=== PATIENT | male | born 1965 | race Caucasian/White ===

== ENCOUNTER 2016-10-28 05:25 | Inpatient (IN) | payer OTHER ==
[~2016-10-28] VITALS: Ht 172.7 cm; Wt 94.0 kg
[2016-10-28] MEDS ORDERED: BUPR300T4 PO (06:18)
[2016-10-28] MEDS ORDERED: PANT40TA5 PO (06:18)
[2016-10-28] MEDS ORDERED: LACTATED RINGERS 1,000 ML IV SCH (06:18)
[2016-10-28] MEDS ORDERED: GABA300C10 PO (06:18)
[2016-10-28] MEDS ORDERED: TRAM50TA2 PO (06:18)
[2016-10-28] MEDS ORDERED: ATOR40TA78 PO (06:18)
[2016-10-28 06:19] VITALS: BP 151/94
[2016-10-28] MEDS ORDERED: LIDOCAINE 1%, 2ML SQ PRN (06:30)
[2016-10-28] MEDS ORDERED: LIDOCAINE 0.5%-EPI 1:200K, 50ML ONE (07:02)
[2016-10-28] MEDS ORDERED: THROMBIN 5,000 UNIT VIAL TP ONE (07:03)
[2016-10-28] MEDS ORDERED: BUPIVACAINE/PF 0.25% ONE (07:03)
[2016-10-28] MEDS ORDERED: VANCOMYCIN 1,000 MG ONE (07:03)
[2016-10-28] MEDS ORDERED: FENTANYL PF 250 MCG/5ML ONE ×2 (07:05→10:07)
[2016-10-28] MEDS ORDERED: MIDAZOLAM 1 MG/ML, 2ML ONE (07:06)
[2016-10-28] MEDS ORDERED: KETAMINE 10 MG/ML, 20ML ONE (07:15)
[2016-10-28] MEDS ORDERED: SUCCINYLCHOLINE 20 MG/ML, 10ML ONE (07:35)
[2016-10-28] MEDS ORDERED: NEOSTIGMINE 1 MG/ML, 10ML ONE (07:35)
[2016-10-28] MEDS ORDERED: GLYCOPYRROLATE 0.2MG/1ML ONE (07:35)
[2016-10-28] MEDS ORDERED: PROPOFOL 10 MG/ML, 20ML ONE (07:35)
[2016-10-28] MEDS ORDERED: CEFAZOLIN 1,000 MG ONE (07:35)
[2016-10-28] MEDS ORDERED: DEXAMETHASONE 4 MG/ML, 1ML ONE (07:35)
[2016-10-28] MEDS ORDERED: ROCURONIUM 10 MG/ML ONE (07:35)
[2016-10-28] MEDS ORDERED: ONDANSETRON 2MG/ML, 2ML ONE (07:35)
[2016-10-28] MEDS ORDERED: HYDROmorphone 1 MG/ML, 1ML ONE (07:51)
[2016-10-28] MEDS ORDERED: HYDROmorphone 1 MG/ML, 1ML IV PRN (08:30)
[2016-10-28] MEDS ORDERED: MIDAZOLAM 1 MG/ML, 2ML IV PRN (08:30)
[2016-10-28] MEDS ORDERED: PROMETHAZINE 25 MG/ML, 1ML IV PRN (08:30)
[2016-10-28] MEDS ORDERED: OXYcodone 5 MG/5 ML ORAL.SOL UDC PO PRN (08:30)
[2016-10-28] MEDS ORDERED: MEPERIDINE/PF 25MG/0.5ML IVPush PRN (08:30)
[2016-10-28] MEDS ORDERED: ACETAMINOPHEN 325 MG TABLET PO PRN (08:30)
[2016-10-28] MEDS ORDERED: METOPROLOL 1 MG/ML, 5ML IV PRN (08:30)
[2016-10-28] MEDS ORDERED: ONDANSETRON 2MG/ML, 2ML IVPush PRN (08:30)
[2016-10-28] MEDS ORDERED: hydrALAzine 20 MG/ML, 1ML IV PRN (08:30)
[2016-10-28] MEDS ORDERED: FENTANYL PF 100 MCG/2ML IV PRN (08:30)
[2016-10-28] MEDS ORDERED: NICOTINE 7 MG/24 HR PATCH.TD24 TD PRN (14:30)
[2016-10-28] MEDS ORDERED: PROMETHAZINE 25 MG/ML, 1ML IM PRN (15:00)
[2016-10-28] MEDS ORDERED: DIAZEPAM 5 MG/ML, 2ML IV PRN (15:00)
[2016-10-28] MEDS ORDERED: ONDANSETRON 2MG/ML, 2ML IV PRN (15:00)
[2016-10-28] MEDS ORDERED: MAGNESIUM HYDROXIDE 8%, 30ML UDC PO PRN (15:00)
[2016-10-28] MEDS ORDERED: morphine SULFATE 10 MG/ML, 1ML IV PRN (15:00)
[2016-10-28] MEDS ORDERED: BISACODYL 10 MG SUPP PR PRN (15:00)
[2016-10-28] MEDS: CEFAZOLIN PMX 1GM/50ML 50 ML IVPB SCH ×2 (15:26→22:48)
[2016-10-28] MEDS: D5%-0.9% NACL+KCL 20MEQ 1,000 ML IV SCH (15:26)
[2016-10-28 19:10] VITALS: BP 110/72
[2016-10-28] MEDS: GABAPENTIN 300 MG CAPSULE PO SCH (22:18)
[2016-10-28] MEDS: ATORVASTATIN 40 MG TABLET PO SCH (22:18)
[2016-10-29 00:21] VITALS: BP 115/69
[2016-10-29 03:41] VITALS: BP 115/70
[2016-10-29] MEDS: D5%-0.9% NACL+KCL 20MEQ 1,000 ML IV SCH ×2 (04:26→11:23)
[2016-10-29 05:31] LABS: BLOOD UREA NITROGEN 12 mg/dL (7-18)
[2016-10-29] MEDS: CEFAZOLIN PMX 1GM/50ML 50 ML IVPB SCH ×3 (06:37→23:15)
[2016-10-29 07:20] VITALS: BP 123/72
[2016-10-29] MEDS: PANTOPROZOLE 40MG TABLET PO SCH (07:47)
[2016-10-29] MEDS: SENNA/DOCUSATE TABLET PO SCH (07:47)
[2016-10-29] MEDS: BUPROPION 300 MG HOMEMEDPO SCH (07:47)
[2016-10-29] MEDS: DIAZEPAM 5 MG TABLET PO PRN ×2 (07:56→16:11)
[2016-10-29] MEDS: TAMSULOSIN 0.4 MG CAP.ER.24H PO SCH (11:56)
[2016-10-29] MEDS: SODIUM CHLORIDE 0.9% 1,000 ML IRRIG SCH ×2 (11:56→16:08)
[2016-10-29] MEDS: NS + 20MEQ KCL 1,000 ML IV SCH (11:57)
[2016-10-29] MEDS: HYDROcodone/APAP 5/325 TABLET PO PRN ×2 (11:57→16:11)
[2016-10-29] MEDS: MAGNESIUM HYDROXIDE 8%, 30ML UDC PO SCH (12:35)
[2016-10-29] MEDS: POLYETHYLENE GLYCOL 17 GM PACKET PO SCH (12:35)
[2016-10-29 13:27] VITALS: BP 105/62
[2016-10-29] MEDS: DEXAMETHASONE 4 MG/ML, 1ML IVPush SCH ×2 (17:25→21:51)
[2016-10-29] MEDS ORDERED: PNEUMOCOCCAL 23 VACCINE IM-VACC ONE (18:30)
[2016-10-29 20:00] VITALS: BP 95/53
[2016-10-29] MEDS: ATORVASTATIN 40 MG TABLET PO SCH (20:32)
[2016-10-29] MEDS: GABAPENTIN 300 MG CAPSULE PO SCH (20:32)
[2016-10-29] MEDS: HYDROcodone/APAP 10/325 MG TABLET PO PRN (21:51)
[2016-10-30] MEDS: HYDROcodone/APAP 10/325 MG TABLET PO PRN ×3 (02:41→18:20)
[2016-10-30 02:50] VITALS: BP 98/56
[2016-10-30] MEDS: NS + 20MEQ KCL 1,000 ML IV SCH ×2 (02:58→18:15)
[2016-10-30] MEDS: DEXAMETHASONE 4 MG/ML, 1ML IVPush SCH (05:19)
[2016-10-30 06:07] LABS: BLOOD UREA NITROGEN 10 mg/dL (7-18)
[2016-10-30] MEDS: CEFAZOLIN PMX 1GM/50ML 50 ML IVPB SCH ×2 (06:44→15:52)
[2016-10-30 06:55] VITALS: BP 132/80
[2016-10-30] MEDS: BUPROPION 300 MG HOMEMEDPO SCH (08:43)
[2016-10-30] MEDS: PANTOPROZOLE 40MG TABLET PO SCH (08:45)
[2016-10-30] MEDS: TAMSULOSIN 0.4 MG CAP.ER.24H PO SCH (08:45)
[2016-10-30] MEDS: MAGNESIUM HYDROXIDE 8%, 30ML UDC PO SCH (08:45)
[2016-10-30] MEDS: SENNA/DOCUSATE TABLET PO SCH (08:45)
[2016-10-30] MEDS: POLYETHYLENE GLYCOL 17 GM PACKET PO SCH (08:45)
[2016-10-30] MEDS ORDERED: BISACODYL 10 MG SUPP PR ONE (09:00)
[2016-10-30] MEDS ORDERED: MAGNESIUM CITRATE 300ML ORAL SOL PO ONE (09:00)
[2016-10-30 15:56] VITALS: BP 125/73
[2016-10-30] MEDS: GABAPENTIN 300 MG CAPSULE PO SCH (20:37)
[2016-10-30] MEDS: ATORVASTATIN 40 MG TABLET PO SCH (20:37)
[2016-10-30 20:51] VITALS: BP 120/71
[2016-10-30] MEDS ORDERED: MAGNESIUM CITRATE 300ML ORAL SOL PO PRN (21:00)
[2016-10-31] MEDS: CEFAZOLIN PMX 1GM/50ML 50 ML IVPB SCH ×2 (00:37→07:44)
[2016-10-31 01:36] VITALS: BP 122/67
[2016-10-31] MEDS: HYDROcodone/APAP 10/325 MG TABLET PO PRN ×2 (02:59→07:42)
[2016-10-31 06:45] VITALS: BP 146/78
[2016-10-31] MEDS: MAGNESIUM HYDROXIDE 8%, 30ML UDC PO SCH (07:41)
[2016-10-31] MEDS: PANTOPROZOLE 40MG TABLET PO SCH (07:41)
[2016-10-31] MEDS: BUPROPION 300 MG HOMEMEDPO SCH (07:41)
[2016-10-31] MEDS: SENNA/DOCUSATE TABLET PO SCH (07:41)
[2016-10-31] MEDS: TAMSULOSIN 0.4 MG CAP.ER.24H PO SCH (07:41)
[2016-10-31] MEDS: POLYETHYLENE GLYCOL 17 GM PACKET PO SCH (07:41)
[2016-10-31 09:44] VITALS: BP 150/84
[2016-10-31] MEDS: DIAZEPAM 5 MG TABLET PO PRN (09:47)
[2016-10-31] MEDS ORDERED: TAMS-11 PO (10:30)
[2016-10-31] MEDS ORDERED: CEPH-368 PO (10:31)
[2016-10-31] MEDS ORDERED: HYDR-3307 PO (10:33)
== END 2016-10-31 11:10 | disposition home or self-care (01) | DRG 460 ==
LOC: ORIP 05:25 → EDSTATUS 07:30 → 4NOR 14:07 → DCLOUNGE 10-31 11:01
PROVIDERS: ADMIT Orthopaedic Surgery Orthopaedic Surgery of the Spine; ATTEND Orthopaedic Surgery Orthopaedic Surgery of the Spine
PROC: 0SG30K1 Fusion of Lumbosacral Joint with Nonautologous Tissue Substitute, Posterior Approach, Posterior Column, Open Approach (ICD-10-PCS; 2016-10-28)
PROC: 01NB0ZZ Release Lumbar Nerve, Open Approach (ICD-10-PCS; 2016-10-28)
PROC: 0SG00K1 Fusion of Lumbar Vertebral Joint with Nonautologous Tissue Substitute, Posterior Approach, Posterior Column, Open Approach (ICD-10-PCS; principal; 2016-10-28 07:30)
DX: M48.06 Spinal stenosis, lumbar region (principal); T83.83XA Hemorrhage due to genitourinary prosthetic devices, implants and grafts, initial encounter; R31.9 Hematuria, unspecified; M48.07 Spinal stenosis, lumbosacral region; M51.36 Other intervertebral disc degeneration, lumbar region; M51.37 Other intervertebral disc degeneration, lumbosacral region; I10 Essential (primary) hypertension; F17.210 Nicotine dependence, cigarettes, uncomplicated; Y84.6 Urinary catheterization as the cause of abnormal reaction of the patient, or of later complication, without mention of misadventure at the time of the procedure; M43.16 Spondylolisthesis, lumbar region; M43.17 Spondylolisthesis, lumbosacral region
CPT/HCPCS: 36415; 72100; 80048; 85025; 86850; 86900; 90732; C1713; J0690; J1100; J1170; J2250; J2270; J2405; J2704; J2710; J3010; J3370; J3480; J3490; C1762; J0330; J7120